=== PATIENT | male | born 1950 | race Caucasian/White ===

== ENCOUNTER 2019-05-11 12:38 | Emergency (ER) | payer OTHER ==
[~2019-05-11] VITALS: Ht 177.8 cm; Wt 83.5 kg
[2019-05-11 13:56] LABS: Basophils # (auto) 0.1 uL; Eosinophils # (auto) 0.2 uL; Eosinophils % (auto) 2.5 % (0.0-7.0); Hematocrit 45.9 % (41.0-53.0); Hemoglobin 15.2 g/dL (13.5-17.5); Lymphocytes # (auto) 1.9 uL; Lymphocytes % (auto) 20.3 % (10.0-50.0); Mean Corpuscular Hemoglobin 30.7 pg (28.0-32.0); Mean Corpuscular Hgb Conc. 33.2 g/dL (32.0-36.0); Mean Corpuscular Volume 92.4 fL (80.0-100.0); Monocytes # (auto) 1.1 uL; Monocytes % (auto) 11.9 % (0.0-12.0); Neutrophils # (auto) 6.1 uL; Neutrophils % (auto) 64.3 % (37.0-80.0); Nucleated Red Blood Cells % 0.1 %; Platelet Count (auto) 307 10^3/uL (140-450); Red Blood Cells 4.97 10^6/uL (4.5-5.90); Red Cell Distribution Width 13.7 % (11.8-14.3); White Blood Cell 9.5 10^3/uL (4.4-10.8)
[2019-05-11] MEDS ORDERED: AZITHROMYCIN 500MG/ 250ML 250 ML IV ONE (14:00)
[2019-05-11] MEDS ORDERED: cefTRIAXone 1GM/50ML D5W 50 ML IV ONE (14:00)
[2019-05-11 14:11] LABS: Albumin 3.7 g/dL (3.4-5.0); BUN/Creatinine Ratio 15.8; Calcium 9.2 mg/dL (8.5-10.1); Potassium 4.5 mmol/L (3.5-5.1)
[2019-05-11 14:14] LABS: Bilirubin, Total 0.4 mg/dL (0.2-1.0); Total Protein 7.8 g/dL (6.4-8.2)
[2019-05-11] MEDS ORDERED: SODIUM CHLORIDE 0.9% 1,000 ML IV ONE (15:51)
[2019-05-11 16:25] LABS: Urine Bacteria NONE SEEN /hpf (None Seen); Urine Blood Negative /uL (Negative); Urine Specific Gravity 1.013 (1.001-1.035); Urine WBC <1 /hpf (0 - 3)
[2019-05-11] MEDS ORDERED: Nepro With Carb Steady 1 Liter Bottle GT SCH (18:15)
[2019-05-11] MEDS ORDERED: RIZA10TA12 PO (18:31)
[2019-05-11] MEDS ORDERED: QUET25TA37 GT (18:31)
[2019-05-11] MEDS ORDERED: TOPI100T29 GT (18:31)
[2019-05-11] MEDS ORDERED: PROP60CA34 GT (18:31)
[2019-05-11] MEDS ORDERED: SENN-62 GT (18:31)
[2019-05-11] MEDS ORDERED: ATOR20TA GT (18:31)
[2019-05-11] MEDS ORDERED: CHOL20007 GT (18:31)
[2019-05-11] MEDS ORDERED: PROM25TA5 GT (18:31)
[2019-05-11] MEDS ORDERED: ASPI-404 PO (18:31)
[2019-05-11] MEDS ORDERED: BUPR75TA9 GT (18:31)
[2019-05-11] MEDS ORDERED: POM GT (18:31)
[2019-05-11] MEDS ORDERED: OME20GT GT (18:31)
[2019-05-11] MEDS ORDERED: LEVO750T2 PO (19:07)
[2019-05-11] MEDS ORDERED: ALBU0.5N2 IN (19:08)
[2019-05-11] MEDS ORDERED: METR500T PO (19:08)
[2019-05-11] MEDS ORDERED: GUAI600T23 PO (19:08)
[2019-05-11 19:23] VITALS: BP 137/83
--- NOTE | 2019-05-12 16:56 | NUR ---
Discharge planning per consult, patient has orders for the [facility] to arrange for out patient ST eval and nebulizer. Placed a follow up call, spoke with Eveyln and was advised that the nebulizer had been ordered to be delivered to his home, and that HH was arranged as well as PCP follow appt. Addendum: 05/12/19 at 1658 by NOHEMY HOBBS Amended: Links added.
--- NOTE | 2019-05-13 09:24 | NUR ---
received a call from Karolyn Zambrano from [facility], she left message stating this pt has not received his nebulizer. This pt was an ER pt and not admitted. I do see that MOOSE Fozia contacted [employer] [facility] to order nebulizer for pt. I called [phone] [employer] and had to leave message with CM stating to f/u with this issue and to make sure pt gets his nebulizer machine
== END 2019-05-11 19:28 | disposition home or self-care (01) ==
LOC: ER 12:38
DX: J18.9 Pneumonia, unspecified organism (principal); R53.1 Weakness; K21.9 Gastro-esophageal reflux disease without esophagitis; E78.5 Hyperlipidemia, unspecified; I10 Essential (primary) hypertension
CPT/HCPCS: 36415; 71046; 80053; 81001; 83735; 84443; 85025; 85379; 87040; 93005; 96365; 96366; 96367; 99284; J0456; J0696; J7030

== ENCOUNTER → 2020-03-12 | Emergency (ER) | payer OTHER ==
[~2020-03-12] VITALS: Ht 177.8 cm; Wt 81.6 kg
[~2020-03-12] MED LIST: ALBU0.5N2 IN; ASPI-404 PO; ATOR20TA GT; BUPR75TA9 GT; CHOL20007 GT; GASTROGRAFIN 30 ML SOL ONE; GUAI600T23 PO; LEVO750T2 PO; METR500T PO; OME20GT GT; POM GT; PROM25TA5 GT; PROP60CA34 GT; QUET25TA37 GT; RIZA10TA12 PO; SENN-62 GT; TOPI100T29 GT
[2020-03-12 18:15] VITALS: BP 130/85
== END | disposition home or self-care (01) ==
LOC: ER 11:04
DX: K94.23 Gastrostomy malfunction (principal); K21.9 Gastro-esophageal reflux disease without esophagitis; E78.5 Hyperlipidemia, unspecified; I10 Essential (primary) hypertension; I25.2 Old myocardial infarction; Z86.73 Personal history of transient ischemic attack (TIA), and cerebral infarction without residual deficits; Z79.899 Other long term (current) drug therapy; Z88.0 Allergy status to penicillin; Z88.2 Allergy status to sulfonamides
CPT/HCPCS: 43762; 74018; 99284; Q9963

== ENCOUNTER 2020-04-08 23:55 | Inpatient (IN) | payer OTHER ==
[~2020-04-08] VITALS: Ht 177.8 cm; Wt 91.0 kg
[~2020-04-08 23:55] MED LIST changes: -ASPI-404 PO; +ASPI-543 PO; -GASTROGRAFIN 30 ML SOL ONE; -LEVO750T2 PO; +LEVO750T8 PO
[2020-04-09] MEDS ORDERED: KETOROLAC TROMETH 30 MG/ML 1ML VIAL IV ONE (00:30)
[2020-04-09] MEDS ORDERED: PANTOPRAZOLE 40 MG/10 ML VIAL INJ IV ONE (00:30)
[2020-04-09 01:01] LABS: Hematocrit 44.5 % (41.0-53.0); Hemoglobin 14.9 g/dL (13.5-17.5); Mean Corpuscular Hemoglobin 31.1 pg (28.0-32.0); Mean Corpuscular Hgb Conc. 33.6 g/dL (32.0-36.0); Mean Corpuscular Volume 92.6 fL (80.0-100.0); Platelet Count (auto) 141 10^3/uL (140-450); Red Blood Cells 4.81 10^6/uL (4.5-5.90); Red Cell Distribution Width 13.7 % (11.8-14.3); White Blood Cell 5.7 10^3/uL (4.4-10.8)
[2020-04-09 01:05] LABS: Basophils % (manual) 0 (0.0-2.0); Blast Cells 0; Eosinophils % (manual) 0 (0-7); Metamyelocytes % 0; Myelocytes % 0; Promyelocytes % 0; Reactive Lymphocytes 0
[2020-04-09 01:17] LABS: Partial Thromboplastin Time 25.9 sec (23.0-31.2)
[2020-04-09 01:23] LABS: Albumin 3.4 g/dL (3.4-5.0); Chloride 112 mmol/L (98-107); Potassium 3.3 mmol/L (3.5-5.1); Sodium 141 mmol/L (136-145)
[2020-04-09 01:34] LABS: Alanine Aminotransferase 135 U/L (16-61); Alkaline Phosphatase 189 U/L (45-117); Anion Gap 7 (5-15); Aspartate Aminotransferase 78 U/L (15-37); BUN/Creatinine Ratio 19.3; Blood Urea Nitrogen 23 mg/dL (7-18); CRP High Sensitivity 5.75 mg/dL (< 0.3); Calcium 8.7 mg/dL (8.5-10.1); Carbon Dioxide 22 mmol/L (21-32); GFR African American 78 mL/min; GFR Non-African American 65 mL/min; Glucose 102 mg/dL (74-106); Magnesium 2.5 mg/dL (1.6-2.6); Total Protein 7.6 g/dL (6.4-8.2)
[2020-04-09] MEDS ORDERED: LORazepam 2MG/ML-1ML VIAL IV ONE (02:00)
[2020-04-09 02:46] LABS: Band Neutrophils % (manual) 4; Lymphocytes % (manual) 10 (10.0-50.0); Monocytes % (manual) 11 (0-12)
[2020-04-09] MEDS ORDERED: IOHEXOL 350 MG/ML 100ML IJ ONE (02:52)
[2020-04-09] MEDS ORDERED: ONDANSETRON HCL 4 MG/2 ML VIAL IV PRN (10:45)
[2020-04-09] MEDS: POTASSIUM CHL 20MEQ/100ML 100 ML IV SCH ×2 (10:45→12:00)
[2020-04-09] MEDS ORDERED: MORPHINE SULF INJ 2 MG/ML SYRINGE 1ML IV PRN (10:45)
[2020-04-09] MEDS ORDERED: NITROGLYCERIN 0.4 MG SL TAB SL PRN (10:45)
[2020-04-09] MEDS ORDERED: MORPHINE SULF INJ 2 MG/ML SYRINGE 1ML IV ONE (10:45)
[2020-04-09] MEDS ORDERED: ENOXAPARIN SOD 80 MG/0.8ML SYRINGE SC ONE (10:45)
[2020-04-09] MEDS ORDERED: GABAPENTIN 100 MG CAP PO ONE (11:15)
[2020-04-09] MEDS ORDERED: GABAPENTIN 400 MG CAP PO ONE (11:15)
[2020-04-09] MEDS ORDERED: POTASSIUM CHLORIDE 40 MEQ, LIDOCAINE 1% (LOCAL ANESTH.) 4 ML in SODIUM CHL 0.9% 100 ML IV ONE (12:00)
--- NOTE | 2020-04-09 14:20 | NUR ---
RECEIVED REPORT FROM MELISSA RICARDO.
--- NOTE | 2020-04-09 14:48 | NUR ---
Telemetry admit from [facility] admitted to Telemetry unit after SBAR received. Patient oriented to YVETTE QUINTANILLA RN primary RN, unit, room, bed, and unit policies regarding patient care and visiting hours. Patient now on continuous telemetry monitoring, tele box # 19 and telemetry reading on arrival to unit is SINUS RHYTHM. Patient placed on bedside oxygen, weighed by bedscale and encouraged to call if they need something. All questions and concerns addressed, patient verbalized understanding.
[2020-04-09 15:30] VITALS: BP 139/92
[2020-04-09] MEDS ORDERED: WARFARIN SODIUM 2.5 MG TAB PO ONE (17:00)
--- NOTE | 2020-04-09 17:00 | NUR ---
PATIENT STATES HE DOES NOT TAKE COUMADIN. COUMADIN REFUSED.
--- NOTE | 2020-04-09 19:22 | NUR ---
Dr. Bell Orders Dr. Kinney at bedside. Ordered Decadron 6mg IV daily and a one time dose. Chest xray, D-dimer lab, and Ferritin lab in the morning. Repeated orders to verified.
[2020-04-09] MEDS ORDERED: DexAMETHasone SOD PHOS 10MG/1ML VIAL INJ IV ONE (19:30)
--- NOTE | 2020-04-09 19:45 | NUR ---
Opening Shift Note Assumed care of patient, awake and alert. No S/S of distress/SOB. Patient c/o pain 04/02. No pain medication on file, will page doctor. Instructed on POC and to call for assist PRN, will continue to monitor for changes Q1hr and PRN .
[2020-04-09 20:00] VITALS: BP 130/95
--- NOTE | 2020-04-09 20:00 | NUR ---
PEG Tube Cleaned around PEG tube due to minimal yellow drainage. Patient belly button surrounding skin is pinkish/reddish.
--- NOTE | 2020-04-09 20:33 | NUR ---
Paged Doctor Paged Dr. Christie after hours, left a message with powder press operator, waiting to call back.
--- NOTE | 2020-04-09 21:20 | NUR ---
Follow UP Paged with Doctor Paged Dr. Christie after hours, left a message with stave log cut off saw operator, waiting to call back.
--- NOTE | 2020-04-09 22:00 | NUR ---
Follow Up Paged Doctor Paged Dr. Christie after hours, left a message with cutting and creasing press operator, waiting to call back.
--- NOTE | 2020-04-09 22:03 | NUR ---
Call Back Dr. Zazueta called back under [place] [facility]. Update on patient's need for pain medication. Dr. Zazueta ordered Morphine 2mg IV Q3hr for severe pain (7-10). Repeated orders to verified.
[2020-04-09 22:07] VITALS: BP 130/95
[2020-04-09] MEDS: QUEtiapine FUMARATE 25 MG TAB GT SCH (22:19)
[2020-04-09] MEDS: buPROPion HCL 75 MG TAB GT SCH (22:20)
[2020-04-09] MEDS: ENOXAPARIN SOD 80 MG/0.8ML SYRINGE SC SCH (22:20)
[2020-04-09] MEDS: MORPHINE SULF INJ 2 MG/ML SYRINGE 1ML IV PRN (22:20)
--- NOTE | 2020-04-09 23:10 | NUR ---
PEG Tube Cleaned around PEG tube due to minimal yellow drainage. Patient belly button surrounding skin is pinkish/reddish.
[2020-04-10] MEDS ORDERED: GABAPENTIN 100 MG CAP PO ONE (00:15)
[2020-04-10] MEDS: MORPHINE SULF INJ 2 MG/ML SYRINGE 1ML IV PRN ×3 (01:24→07:45)
[2020-04-10] MEDS ORDERED: MORPHINE SULFATE 10 MG/5 ML ORAL SOLN GT PRN (02:45)
[2020-04-10 05:00] VITALS: BP 128/97
[2020-04-10] MEDS ORDERED: GABAPENTIN 100 MG CAP PO SCH (06:00)
[2020-04-10 07:24] LABS: Basophils # (auto) 0 10 ^3/uL (0-0.2); Basophils % (auto) 0.2 % (0.0-2.0); Eosinophils # (auto) 0 10 ^3/uL (0-0.8); Hematocrit 42.3 % (41.0-53.0); Hemoglobin 14.1 g/dL (13.5-17.5); Lymphocytes # (auto) 0.6 10 ^3/uL (0.4-5.4); Lymphocytes % (auto) 14.1 % (10.0-50.0); Mean Corpuscular Hemoglobin 30.7 pg (28.0-32.0); Mean Corpuscular Hgb Conc. 33.2 g/dL (32.0-36.0); Mean Corpuscular Volume 92.5 fL (80.0-100.0); Monocytes # (auto) 0.2 10 ^3/uL (0-1.3); Monocytes % (auto) 5.7 % (0.0-12.0); Neutrophils # (auto) 3.3 10 ^3/uL (1.6-8.6); Nucleated Red Blood Cells % 0.1 %; Platelet Count (auto) 144 10^3/uL (140-450); Red Blood Cells 4.57 10^6/uL (4.5-5.90); Red Cell Distribution Width 13.8 % (11.8-14.3); White Blood Cell 4.2 10^3/uL (4.4-10.8)
[2020-04-10 07:37] LABS: Albumin 3.2 g/dL (3.4-5.0); Calcium 8.7 mg/dL (8.5-10.1)
[2020-04-10 07:40] LABS: BUN/Creatinine Ratio 28.3; Bilirubin, Total 0.8 mg/dL (0.2-1.0); Total Protein 7.3 g/dL (6.4-8.2)
[2020-04-10 07:42] LABS: INR 1.03 (0.9-1.15)
[2020-04-10 09:21] VITALS: BP 129/86
[2020-04-10] MEDS ORDERED: ATORVASTATIN 20 MG TAB GT SCH (10:00)
[2020-04-10] MEDS ORDERED: GABAPENTIN 100 MG CAP PEG ONE (10:15)
[2020-04-10] MEDS: OMEPRAZOLE 20MG/10ML ORAL SUSP GT SCH (11:44)
[2020-04-10] MEDS: DexAMETHasone SOD PHOS 10MG/1ML VIAL INJ IV SCH (11:45)
[2020-04-10] MEDS: TOPIRAMATE 100 MG TAB GT SCH (11:45)
[2020-04-10] MEDS: buPROPion HCL 75 MG TAB GT SCH ×2 (11:45→23:22)
[2020-04-10] MEDS: ASPirin-EC 81 mg tab PO SCH (11:46)
[2020-04-10] MEDS: ENOXAPARIN SOD 80 MG/0.8ML SYRINGE SC SCH ×2 (11:46→23:21)
[2020-04-10] MEDS: MORPHINE SULFATE 10 MG/5 ML ORAL SOLN GT PRN ×2 (11:46→18:44)
--- NOTE | 2020-04-10 12:30 | NUR ---
WOUND CARE NOTE: Wound care in to see patient per wound care request regarding "Peg tube incision". Patient is 69 years old male admitted for PE. Patient is resting in bed in Rm. 247A. Patient is awake, alert and oriented. He's self turning and repositioning. His Godwin score is 21. Patient has G Tube and surrounding skin noted with erythema, skin irritation. Cleansed skin with NS, patted dry with gauze, applied sure prep skin protectant, applied, dry sterile 4x4 gauze. No other wound noted, no pressure injury noted. Patient tolerated well. No further wound care monitoring needed at this time. RECOMMENDATION: Daily/PRN cleaning and application of skin protectant to GT surrounding skin dressing per MD order, reconsult for active wound, pressure injury, Low Godwin score of 12 and below. Addendum: 04/10/20 at 1547 by Mona Shah RN Amended: Links added.
[2020-04-10 13:19] VITALS: BP 130/88
--- NOTE | 2020-04-10 13:59 | NUR ---
Consult Consider Osmolite 1.2 at 65 ml/hr Est energy needs 3964-3677 kcal (20-25 kcal/kg BW 78.1kg) Est protein needs 63-78g (0.8-1g/kg BW 78.1kg) Will reassess prn. Addendum: 04/10/20 at [address] Amended: Links added.
[2020-04-10] MEDS: GABAPENTIN 100 MG CAP PEG SCH ×2 (16:54→23:23)
[2020-04-10 17:00] VITALS: BP 139/82
[2020-04-10] MEDS ORDERED: WARFARIN SODIUM 2.5 MG TAB GT ONE (17:00)
--- NOTE | 2020-04-10 19:30 | NUR ---
Opening Shift Note Assumed care of patient, awake and alert. No S/S of distress/SOB or pain. Instructed on POC and to call for assist PRN, will continue to monitor for changes Q1hr and PRN.
--- NOTE | 2020-04-10 20:07 | NUR ---
Repot/SBAR given to Nurse Report/SBAR given to Nurse Staci
--- NOTE | 2020-04-10 21:00 | NUR ---
Patient Transfer Patient transfer via wheelchair to room 216A. Patient tolerated well.
--- NOTE | 2020-04-10 21:00 | NUR ---
Patient received from [facility] Patient received from [facility] via wheelchair. Patient settled in bed. Patient oriented to room, bed, and call light. Patient verbalized understanding. Patient A&Ox4. No s/s of distress or pain. Safety measures maintained by keeping the bed locked in lowest position, 2 side rails up, personal items and call light within reach. Will continue to monitor.
--- NOTE | 2020-04-10 21:01 | NUR ---
Narcotics Patient's pharmacy narcotic's (morphine & gabapentin) were given to MELISSA Small.
[2020-04-10] MEDS: ATORVASTATIN 20 MG TAB GT SCH (21:49)
[2020-04-10 22:00] VITALS: BP 129/88
[2020-04-10] MEDS: QUEtiapine FUMARATE 25 MG TAB GT SCH (23:22)
[2020-04-11] MEDS: MORPHINE SULFATE 10 MG/5 ML ORAL SOLN GT PRN ×3 (03:54→19:58)
[2020-04-11 05:00] VITALS: BP 122/75
[2020-04-11] MEDS: GABAPENTIN 100 MG CAP PEG SCH ×3 (06:13→22:43)
--- NOTE | 2020-04-11 07:20 | NUR ---
Opening Shift Note Assumed care of patient, awake and alert. No S/S of distress/SOB, reports chronic back pain. Instructed on POC and to call for assist PRN, will continue to monitor for changes Q1hr and PRN.
[2020-04-11 08:33] LABS: Basophils # (auto) 0 10 ^3/uL (0-0.2); Basophils % (auto) 0.4 % (0.0-2.0); Eosinophils # (auto) 0 10 ^3/uL (0-0.8); Eosinophils % (auto) 0.1 % (0.0-7.0); Hematocrit 44.8 % (41.0-53.0); Lymphocytes % (auto) 15.3 % (10.0-50.0); Mean Corpuscular Hgb Conc. 33.6 g/dL (32.0-36.0); Mean Corpuscular Volume 92.4 fL (80.0-100.0); Monocytes # (auto) 0.8 10 ^3/uL (0-1.3); Monocytes % (auto) 12.1 % (0.0-12.0); Neutrophils # (auto) 4.9 10 ^3/uL (1.6-8.6); Neutrophils % (auto) 72.1 % (37.0-80.0); Nucleated Red Blood Cells % 0.1 %; Platelet Count (auto) 171 10^3/uL (140-450); Red Blood Cells 4.85 10^6/uL (4.5-5.90); Red Cell Distribution Width 13.5 % (11.8-14.3); White Blood Cell 6.8 10^3/uL (4.4-10.8)
[2020-04-11 08:46] LABS: Albumin 3.5 g/dL (3.4-5.0); Calcium 8.8 mg/dL (8.5-10.1); Potassium 3.4 mmol/L (3.5-5.1)
[2020-04-11 08:50] LABS: BUN/Creatinine Ratio 29.2; Bilirubin, Total 0.7 mg/dL (0.2-1.0); INR 1.14 (0.9-1.15); Total Protein 7.7 g/dL (6.4-8.2)
[2020-04-11 09:00] VITALS: BP 123/81
[2020-04-11] MEDS: ENOXAPARIN SOD 80 MG/0.8ML SYRINGE SC SCH ×2 (10:00→22:43)
[2020-04-11] MEDS: DexAMETHasone SOD PHOS 10MG/1ML VIAL INJ IV SCH (10:00)
[2020-04-11] MEDS: ASPirin-EC 81 mg tab PO SCH (10:00)
--- NOTE | 2020-04-11 11:03 | NUR ---
I faxed home health order to [facility].
[2020-04-11] MEDS: OMEPRAZOLE 20MG/10ML ORAL SUSP GT SCH (11:39)
[2020-04-11] MEDS: TOPIRAMATE 100 MG TAB GT SCH (11:39)
[2020-04-11] MEDS: buPROPion HCL 75 MG TAB GT SCH ×2 (11:39→22:43)
--- NOTE | 2020-04-11 12:25 | NUR ---
I spoke with [facility] Reading Coach Laurel-she said patient will be followed by [facility] (phone number [phone]), they will see patient within 24-48 hours of discharge.
[2020-04-11 13:00] VITALS: BP 116/74
[2020-04-11] MEDS ORDERED: IOHEXOL 300 MG/ML 100ML BOTTLE IJ ONE (13:11)
[2020-04-11 17:00] VITALS: BP 118/82
[2020-04-11] MEDS ORDERED: WARFARIN SODIUM 2.5 MG TAB GT ONE (17:00)
--- NOTE | 2020-04-11 19:30 | NUR ---
Opening Shift Note Assumed care of patient, awake and alert. A&Ox4. Patient laying in bed. No S/S of distress/SOB or pain. Patient asking for a dressing change for his J tube. Dressing changed with no complications. Safety measures maintained by keeping the bed locked in lowest position, 2 side rails up, personal items and call light within reach. Instructed on POC and to call for assist PRN, will continue to monitor for changes Q1hr and PRN.
[2020-04-11] MEDS: ATORVASTATIN 20 MG TAB GT SCH (19:56)
[2020-04-11 22:21] VITALS: BP 127/65
[2020-04-11] MEDS: QUEtiapine FUMARATE 25 MG TAB GT SCH (22:43)
[2020-04-12 05:28] VITALS: BP 144/75
[2020-04-12] MEDS: GABAPENTIN 100 MG CAP PEG SCH ×2 (05:45→13:30)
[2020-04-12 06:53] LABS: Basophils # (auto) 0 10 ^3/uL (0-0.2); Basophils % (auto) 0.5 % (0.0-2.0); Eosinophils # (auto) 0.1 10 ^3/uL (0-0.8); Eosinophils % (auto) 2.1 % (0.0-7.0); Hematocrit 40.1 % (41.0-53.0); Hemoglobin 13.2 g/dL (13.5-17.5); Lymphocytes # (auto) 1.4 10 ^3/uL (0.4-5.4); Lymphocytes % (auto) 23.8 % (10.0-50.0); Mean Corpuscular Hemoglobin 30.8 pg (28.0-32.0); Mean Corpuscular Hgb Conc. 32.8 g/dL (32.0-36.0); Mean Corpuscular Volume 93.8 fL (80.0-100.0); Monocytes # (auto) 0.8 10 ^3/uL (0-1.3); Monocytes % (auto) 13.4 % (0.0-12.0); Neutrophils # (auto) 3.5 10 ^3/uL (1.6-8.6); Neutrophils % (auto) 60.2 % (37.0-80.0); Nucleated Red Blood Cells % 0.1 %; Platelet Count (auto) 155 10^3/uL (140-450); Red Blood Cells 4.27 10^6/uL (4.5-5.90); Red Cell Distribution Width 13.9 % (11.8-14.3); White Blood Cell 5.8 10^3/uL (4.4-10.8)
[2020-04-12] MEDS: MORPHINE SULFATE 10 MG/5 ML ORAL SOLN GT PRN ×2 (07:03→15:15)
[2020-04-12 07:17] LABS: INR 1.95 (0.9-1.15)
[2020-04-12 07:20] LABS: Albumin 3.1 g/dL (3.4-5.0); Calcium 8.3 mg/dL (8.5-10.1)
[2020-04-12 07:25] LABS: BUN/Creatinine Ratio 22.2; Bilirubin, Total 0.8 mg/dL (0.2-1.0); Total Protein 6.4 g/dL (6.4-8.2)
[2020-04-12] MEDS ORDERED: POTASSIUM CHL 20 Meq TABLET PO ONE (07:45)
[2020-04-12 08:00] VITALS: BP 134/77
--- NOTE | 2020-04-12 08:00 | NUR ---
Called Dr. Ryder to clarify the order for Potassium 60 Meq PO, patient has J-tube replaced yesterday, Pharmacy said there's Potassium Effervescent 25 Meq each sachet [place]ton. Dr. Ryder ordered to change the order to Potassium Effervescent 50 Meq, call Dr. Weathers if patient can go home even if the J-tube site is leaking. Dr. Ryder ordered to give the Comadin dose today before discharge. Addendum: 04/12/20 at 0913 by Betina Quintero RN G-tube
[2020-04-12] MEDS ORDERED: POTASSIUM EFFERVESENT TAB 25 MEQ GT ONE (08:15)
--- NOTE | 2020-04-12 08:20 | NUR ---
Wet gauze dressing noted on the J-tube site. Dressing change done on the J-tube site. Tube intact and patent. Addendum: 04/12/20 at 0912 by Betina Quintero RN G-tube
[2020-04-12] MEDS: DexAMETHasone SOD PHOS 10MG/1ML VIAL INJ IV SCH (08:33)
[2020-04-12] MEDS: ENOXAPARIN SOD 80 MG/0.8ML SYRINGE SC SCH (08:33)
[2020-04-12] MEDS: ASPirin-EC 81 mg tab PO SCH (08:33)
--- NOTE | 2020-04-12 09:10 | NUR ---
Called Dr. Weathers regarding periods of leaking on the site of the G-tube; Dr. Ryder asked if patient can go home today. Dr. Weathers said he has no more tubes to place, patient can go home. G-tube is patent for medication administration.
--- NOTE | 2020-04-12 09:48 | NUR ---
Dr. Ryder came over. made aware Dr. Weathers has no more tubes to insert, patient can go home. Able to administer medications via G-tube. Periods of leaking on the G-tube site. Dr. Ryder ordered to discontinue the Coumadin, [facility] bedside before discharge today.
--- NOTE | 2020-04-12 10:00 | NUR ---
Patient stated his will pick him up around 4:00 pm to 5:00 pm today.
[2020-04-12] MEDS: OMEPRAZOLE 20MG/10ML ORAL SUSP GT SCH (10:39)
[2020-04-12] MEDS: TOPIRAMATE 100 MG TAB GT SCH (10:40)
[2020-04-12] MEDS: buPROPion HCL 75 MG TAB GT SCH (10:40)
--- NOTE | 2020-04-12 12:18 | NUR ---
Assisted the patient ambulating to the bathroom. Instructions given to patient to pull the red string if he needs help.
--- NOTE | 2020-04-12 14:10 | NUR ---
Portable O2 tank w/ nasal cannula delivered at bedside.
[2020-04-12 14:24] VITALS: BP 134/77
--- NOTE | 2020-04-12 16:30 | NUR ---
Photo taken of the stoma of the J-tube/PEG site. Wound care form placed on the wound care tray, camera returned to [facility].
--- NOTE | 2020-04-12 16:48 | NUR ---
Dr. Ryder called that patient's portable O2 was delivered at home. Dr. Ryder made aware the patient's portable 02 was delivered at [facility], now at patient's bedside.
[2020-04-12] MEDS ORDERED: WARFARIN SODIUM 1 MG TAB GT ONE (17:00)
--- NOTE | 2020-04-12 17:24 | NUR ---
Discharge instructions given as ordered. Encourage to follow up with PMD as instructed. All questions and concerns addressed. Patient verbalized understanding. Medication reconciliation form completed and copy given to patient. IV removed with catheter intact, pressure dressing applied. Telemetry unit returned to ICU. Patient taken to vehicle via wheelchair with all personal belongings inclding the portable O2 tank w/ nasal cannula, patient accompanied by staff, family member waiting at the Main Lobby. No distress noted at time of departure.
== END 2020-04-12 17:25 | disposition home or self-care (01) | DRG 189 ==
LOC: EDBD 23:55 → ER 04-09 00:02 → TELE-EAST 04-09 00:03 → TELE-CENTR 04-10 21:00
PROVIDERS: ADMIT Hospitalist; ATTEND Hospitalist
PROC: 0D2DXUZ Change Feeding Device in Lower Intestinal Tract, External Approach (ICD-10-PCS; principal; 2020-04-11)
DX: J96.01 Acute respiratory failure with hypoxia (principal); D68.9 Coagulation defect, unspecified; J98.11 Atelectasis; I71.9 Aortic aneurysm of unspecified site, without rupture; E78.5 Hyperlipidemia, unspecified; F41.9 Anxiety disorder, unspecified; I10 Essential (primary) hypertension; I25.10 Atherosclerotic heart disease of native coronary artery without angina pectoris; I27.20 Pulmonary hypertension, unspecified; Z20.828 Contact with and (suspected) exposure to other viral communicable diseases; F32.9 Major depressive disorder, single episode, unspecified; G43.909 Migraine, unspecified, not intractable, without status migrainosus; K21.9 Gastro-esophageal reflux disease without esophagitis; Z80.9 Family history of malignant neoplasm, unspecified; Z86.73 Personal history of transient ischemic attack (TIA), and cerebral infarction without residual deficits; Z86.79 Personal history of other diseases of the circulatory system; Z95.2 Presence of prosthetic heart valve; Z93.1 Gastrostomy status; Z88.0 Allergy status to penicillin; Z88.2 Allergy status to sulfonamides
CPT/HCPCS: 36415; 36600; 71045; 71275; 74018; 76000; 78582; 80053; 82728; 82805; 83615; 83735; 83880; 84484; 85007; 85025; 85027; 85379; 85610; 85730; 86141; 87040; 87081; 87426; 93005; 93306; 93970; 96361; 96372; 96374; 96375; C9113; G0378; J1100; J1885; J2001; J2405; J3480

== ENCOUNTER 2020-06-22 14:57 | Inpatient (IN) | payer OTHER ==
[~2020-06-22] VITALS: Ht 177.8 cm; Wt 74.3 kg
[2020-06-22] MEDS ORDERED: methylPREDNISolone SOD SUCC 125 MG/2 ML VL IV ONE (15:15)
[2020-06-22 15:55] LABS: Basophils # (auto) 0 10 ^3/uL (0-0.2); Basophils % (auto) 0.2 % (0.0-2.0); Eosinophils # (auto) 0 10 ^3/uL (0-0.8); Eosinophils % (auto) 0.1 % (0.0-7.0); Hemoglobin 11.8 g/dL (13.5-17.5); Lymphocytes # (auto) 0.6 10 ^3/uL (0.4-5.4); Lymphocytes % (auto) 14.6 % (10.0-50.0); Mean Corpuscular Hemoglobin 30.5 pg (28.0-32.0); Mean Corpuscular Hgb Conc. 32.8 g/dL (32.0-36.0); Monocytes # (auto) 0.6 10 ^3/uL (0-1.3); Monocytes % (auto) 15.9 % (0.0-12.0); Neutrophils # (auto) 2.7 10 ^3/uL (1.6-8.6); Neutrophils % (auto) 69.2 % (37.0-80.0); Platelet Count (auto) 127 10^3/uL (140-450); Red Blood Cells 3.87 10^6/uL (4.5-5.90); White Blood Cell 3.9 10^3/uL (4.4-10.8)
[2020-06-22 16:09] LABS: Albumin 2.7 g/dL (3.4-5.0); Anion Gap 9 (5-15); Blood Urea Nitrogen 28 mg/dL (7-18); Calcium 7.8 mg/dL (8.5-10.1); Carbon Dioxide 21 mmol/L (21-32); Chloride 110 mmol/L (98-107); Glucose 105 mg/dL (74-106); Potassium 3.6 mmol/L (3.5-5.1); Sodium 140 mmol/L (136-145)
[2020-06-22 16:17] LABS: Alanine Aminotransferase 24 U/L (16-61); Alkaline Phosphatase 80 U/L (45-117); Aspartate Aminotransferase 48 U/L (15-37); BUN/Creatinine Ratio 27.5; Bilirubin, Total 0.4 mg/dL (0.2-1.0); CRP High Sensitivity 4.59 mg/dL (< 0.3); GFR African American 94 mL/min; GFR Non-African American 77 mL/min; Total Protein 6.6 g/dL (6.4-8.2)
[2020-06-22] MEDS ORDERED: ASCORBIC ACID 500 MG TAB PO ONE (17:15)
[2020-06-22] MEDS ORDERED: ZINC SULFATE 220mg CAP or TAB PO ONE (17:15)
[2020-06-22] MEDS ORDERED: AZITHROMYCIN 500MG/ 250ML 250 ML IV ONE (17:15)
[2020-06-23] MEDS: HYDROcodone-ACET 10/325MG TAB PO PRN ×3 (02:34→22:35)
[2020-06-23] MEDS ORDERED: OME20GT GT (03:11)
[2020-06-23] MEDS ORDERED: RIZA5TAB35 PEG (03:11)
[2020-06-23] MEDS ORDERED: GABA100C9 JT (03:15)
[2020-06-23] MEDS ORDERED: INFLUENZA QUAD 2020-2021 0.5 ML SYRG IM ONE (03:15)
[2020-06-23] MEDS ORDERED: LISI-648 PEG (03:15)
[2020-06-23] MEDS ORDERED: MORP20SO17 JT (03:15)
[2020-06-23] MEDS ORDERED: MORP15TA JT (03:15)
[2020-06-23 05:00] VITALS: BP 114/78
[2020-06-23] MEDS ORDERED: MORPHINE SULF INJ 2 MG/ML SYRINGE 1ML IV PRN (06:30)
[2020-06-23 06:43] LABS: Hematocrit 38.9 % (41.0-53.0); Hemoglobin 12.8 g/dL (13.5-17.5); Mean Corpuscular Hemoglobin 30.3 pg (28.0-32.0); Mean Corpuscular Hgb Conc. 32.8 g/dL (32.0-36.0); Mean Corpuscular Volume 92.3 fL (80.0-100.0); Platelet Count (auto) 149 10^3/uL (140-450); Red Blood Cells 4.22 10^6/uL (4.5-5.90); Red Cell Distribution Width 13.8 % (11.8-14.3)
[2020-06-23 06:51] LABS: Basophils % (manual) 0 (0.0-2.0); Blast Cells 0; Eosinophils % (manual) 0 (0-7); Promyelocytes % 0; Reactive Lymphocytes 0
[2020-06-23 07:08] LABS: Band Neutrophils % (manual) 2; Lymphocytes % (manual) 6 (10.0-50.0); Metamyelocytes % 2; Monocytes % (manual) 4 (0-12); Myelocytes % 1
[2020-06-23 07:11] LABS: BUN/Creatinine Ratio 27.5; Calcium 8.3 mg/dL (8.5-10.1); Potassium 4.1 mmol/L (3.5-5.1)
[2020-06-23 09:00] VITALS: BP 116/79
[2020-06-23] MEDS: DexAMETHasone SOD PHOS 10MG/1ML VIAL INJ IV SCH (09:46)
[2020-06-23] MEDS: AZITHROMYCIN 500MG/ 250ML 250 ML IV SCH (09:46)
[2020-06-23] MEDS: MORPHINE SULFATE 4 MG/ML SYR/VIAL IV PRN ×3 (10:56→21:01)
[2020-06-23] MEDS: OMEPRAZOLE 20MG/10ML ORAL SUSP GT SCH ×2 (12:37→16:47)
[2020-06-23] MEDS: Nepro With Carb Steady 1 Liter Bottle GT SCH (12:51)
[2020-06-23 13:00] VITALS: BP 109/75
[2020-06-23] MEDS: TOPIRAMATE 100 MG TAB GT SCH (16:46)
[2020-06-23] MEDS: ASPirin-EC 81 mg tab PO SCH (16:46)
[2020-06-23] MEDS: LISINOPRIL 10 MG TAB PEG SCH (16:47)
[2020-06-23] MEDS: GABAPENTIN 100 MG CAP JT SCH ×2 (16:47→21:29)
[2020-06-23 17:00] VITALS: BP 113/73
[2020-06-23] MEDS: ONDANSETRON HCL 4 MG/2 ML VIAL IV PRN (18:13)
[2020-06-23] MEDS: ATORVASTATIN 20 MG TAB GT SCH (21:29)
[2020-06-23] MEDS: buPROPion HCL 75 MG TAB GT SCH (21:29)
[2020-06-23] MEDS: QUEtiapine FUMARATE 25 MG TAB GT SCH (21:29)
[2020-06-23 22:00] VITALS: BP 123/74
[2020-06-24] VITALS (7 sets, daily range): BP systolic 115–137; BP diastolic 72–85
[2020-06-24] MEDS: MORPHINE SULFATE 4 MG/ML SYR/VIAL IV PRN ×4 (01:55→20:10)
[2020-06-24] MEDS: ONDANSETRON HCL 4 MG/2 ML VIAL IV PRN ×3 (03:25→20:10)
[2020-06-24] MEDS: GABAPENTIN 100 MG CAP JT SCH ×3 (05:51→22:09)
[2020-06-24 06:54] LABS: Basophils # (auto) 0 10 ^3/uL (0-0.2); Basophils % (auto) 0.2 % (0.0-2.0); Eosinophils # (auto) 0 10 ^3/uL (0-0.8); Hematocrit 39.1 % (41.0-53.0); Hemoglobin 13.1 g/dL (13.5-17.5); Lymphocytes # (auto) 0.7 10 ^3/uL (0.4-5.4); Lymphocytes % (auto) 10.5 % (10.0-50.0); Mean Corpuscular Hemoglobin 30.3 pg (28.0-32.0); Mean Corpuscular Hgb Conc. 33.5 g/dL (32.0-36.0); Mean Corpuscular Volume 90.5 fL (80.0-100.0); Monocytes # (auto) 0.8 10 ^3/uL (0-1.3); Monocytes % (auto) 11.3 % (0.0-12.0); Neutrophils # (auto) 5.5 10 ^3/uL (1.6-8.6); Platelet Count (auto) 188 10^3/uL (140-450); Red Blood Cells 4.31 10^6/uL (4.5-5.90); Red Cell Distribution Width 13.8 % (11.8-14.3)
[2020-06-24 07:11] LABS: BUN/Creatinine Ratio 38.8; Calcium 8.5 mg/dL (8.5-10.1); Potassium 3.5 mmol/L (3.5-5.1)
[2020-06-24] MEDS: ACETAMINOPHEN 325 MG TAB PO PRN ×2 (08:12→14:04)
[2020-06-24] MEDS: OMEPRAZOLE 20MG/10ML ORAL SUSP GT SCH (08:25)
[2020-06-24] MEDS: buPROPion HCL 75 MG TAB GT SCH ×2 (08:25→22:09)
[2020-06-24] MEDS: TOPIRAMATE 100 MG TAB GT SCH (08:25)
[2020-06-24] MEDS: AZITHROMYCIN 500MG/ 250ML 250 ML IV SCH (08:26)
[2020-06-24] MEDS: DexAMETHasone SOD PHOS 10MG/1ML VIAL INJ IV SCH (08:26)
[2020-06-24] MEDS: ASPirin-EC 81 mg tab PO SCH (08:26)
[2020-06-24] MEDS: LISINOPRIL 10 MG TAB PEG SCH (08:27)
[2020-06-24] MEDS: ALBUTEROL SULF 2.5 MG/0.5ML(0.5%) NEB SOLN NEB SCH ×2 (11:05→14:43)
[2020-06-24] MEDS: IPRATROPIUM BROM 0.5 MG/2.5ML INH SOL NEB SCH ×2 (11:05→14:43)
[2020-06-24] MEDS: CYCLOBENZAPRINE HCL 10 MG TAB PO PRN (15:55)
[2020-06-24] MEDS: Nepro With Carb Steady 1 Liter Bottle GT SCH (17:53)
[2020-06-24] MEDS ORDERED: ALBUTEROL SULFATE 90 MCG MDI IN ONE (20:50)
[2020-06-24] MEDS: ATORVASTATIN 20 MG TAB GT SCH (22:08)
[2020-06-24] MEDS: QUEtiapine FUMARATE 25 MG TAB GT SCH (22:09)
[2020-06-24] MEDS: ALBUTEROL SULF HFA 90MCG INH 200DOSE IN SCH (22:27)
[2020-06-25] MEDS: MORPHINE SULFATE 4 MG/ML SYR/VIAL IV PRN ×2 (01:18→11:45)
[2020-06-25] MEDS: ONDANSETRON HCL 4 MG/2 ML VIAL IV PRN ×3 (01:18→12:55)
[2020-06-25] MEDS: CYCLOBENZAPRINE HCL 10 MG TAB PO PRN (04:45)
[2020-06-25 05:00] VITALS: BP 122/83
[2020-06-25 05:24] LABS: Basophils # (auto) 0 10 ^3/uL (0-0.2); Basophils % (auto) 0.1 % (0.0-2.0); Eosinophils # (auto) 0 10 ^3/uL (0-0.8); Eosinophils % (auto) 0.3 % (0.0-7.0); Hematocrit 39.4 % (41.0-53.0); Hemoglobin 13.3 g/dL (13.5-17.5); Lymphocytes # (auto) 0.6 10 ^3/uL (0.4-5.4); Lymphocytes % (auto) 11.8 % (10.0-50.0); Mean Corpuscular Hemoglobin 30.9 pg (28.0-32.0); Mean Corpuscular Hgb Conc. 33.8 g/dL (32.0-36.0); Mean Corpuscular Volume 91.4 fL (80.0-100.0); Monocytes # (auto) 0.7 10 ^3/uL (0-1.3); Neutrophils # (auto) 3.7 10 ^3/uL (1.6-8.6); Neutrophils % (auto) 73.8 % (37.0-80.0); Platelet Count (auto) 211 10^3/uL (140-450); Red Blood Cells 4.31 10^6/uL (4.5-5.90)
[2020-06-25] MEDS: ACETAMINOPHEN 325 MG TAB PO PRN (05:27)
[2020-06-25] MEDS: ALBUTEROL SULF HFA 90MCG INH 200DOSE IN SCH ×2 (05:39→14:32)
[2020-06-25 05:40] LABS: Calcium 8.8 mg/dL (8.5-10.1); Potassium 3.2 mmol/L (3.5-5.1)
[2020-06-25 05:42] LABS: BUN/Creatinine Ratio 35.7
[2020-06-25] MEDS: GABAPENTIN 100 MG CAP JT SCH ×2 (06:39→14:00)
[2020-06-25] MEDS: AZITHROMYCIN 500MG/ 250ML 250 ML IV SCH (08:29)
[2020-06-25] MEDS: TOPIRAMATE 100 MG TAB GT SCH (08:29)
[2020-06-25] MEDS: buPROPion HCL 75 MG TAB GT SCH (08:29)
[2020-06-25] MEDS: DexAMETHasone SOD PHOS 10MG/1ML VIAL INJ IV SCH (08:29)
[2020-06-25] MEDS: ASPirin-EC 81 mg tab PO SCH (08:30)
[2020-06-25 08:34] VITALS: BP 123/86
[2020-06-25] MEDS: LISINOPRIL 10 MG TAB PEG SCH (09:36)
[2020-06-25] MEDS: OMEPRAZOLE 20MG/10ML ORAL SUSP GT SCH (10:00)
[2020-06-25] MEDS ORDERED: ENOXAPARIN SOD 30 MG/0.3 ML SYRINGE SC SCH (10:00)
[2020-06-25] MEDS ORDERED: POTASSIUM CHL 20 Meq TABLET PO ONE (10:15)
[2020-06-25 13:00] VITALS: BP 124/82
== END 2020-06-25 16:00 | disposition home health service (06) | DRG 177 ==
LOC: ER 14:57 → EDBD 14:57 → TELE 14:58 → TELE-EAST 06-23 01:05
PROVIDERS: ADMIT Internal Medicine; ATTEND Internal Medicine
DX: U07.1 COVID-19 (principal); J12.89 Other viral pneumonia; J96.00 Acute respiratory failure, unspecified whether with hypoxia or hypercapnia; J44.0 Chronic obstructive pulmonary disease with (acute) lower respiratory infection; I10 Essential (primary) hypertension; K21.9 Gastro-esophageal reflux disease without esophagitis; E78.5 Hyperlipidemia, unspecified; F32.9 Major depressive disorder, single episode, unspecified; I71.9 Aortic aneurysm of unspecified site, without rupture; K80.20 Calculus of gallbladder without cholecystitis without obstruction; Z79.899 Other long term (current) drug therapy; Z80.9 Family history of malignant neoplasm, unspecified; Z85.47 Personal history of malignant neoplasm of testis; Z86.73 Personal history of transient ischemic attack (TIA), and cerebral infarction without residual deficits; Z28.21 Immunization not carried out because of patient refusal; Z86.79 Personal history of other diseases of the circulatory system; Z87.891 Personal history of nicotine dependence; Z95.2 Presence of prosthetic heart valve; Z90.49 Acquired absence of other specified parts of digestive tract; I25.2 Old myocardial infarction
CPT/HCPCS: 36415; 36600; 71045; 71250; 80048; 80053; 82728; 82805; 83605; 83880; 84484; 85007; 85025; 85027; 85379; 86141; 87040; 87081; 87426; 93005; 94640; 99291; G0378; J1100; J2405

== ENCOUNTER 2020-10-14 13:59 | Emergency (ER) | payer OTHER ==
[~2020-10-14] VITALS: Ht 177.8 cm; Wt 78.5 kg
[~2020-10-14 13:59] MED LIST changes: -ALBU0.5N2 IN; -CHOL20007 GT; +GABA100C9 JT; -GUAI600T23 PO; -LEVO750T8 PO; +LISI-648 PEG; -METR500T PO; +MORP20SO17 JT; -POM GT; -PROP60CA34 GT; -RIZA10TA12 PO; +RIZA5TAB35 PEG
[2020-10-14] MEDS ORDERED: LACTATED RINGER'S 1,000 ML IV ONE ×2 (14:45→17:00)
[2020-10-14] MEDS ORDERED: levoFLOXacin 750MG 150 ML IV ONE (15:45)
[2020-10-14] MEDS ORDERED: metroNIDAZOLE 500MG/100ML 100 ML IV ONE (15:45)
[2020-10-14 15:48] LABS: Basophils # (auto) 0 10 ^3/uL (0-0.2); Basophils % (auto) 0.1 % (0.0-2.0); Eosinophils # (auto) 0 10 ^3/uL (0-0.8); Eosinophils % (auto) 0.1 % (0.0-7.0); Hematocrit 38.3 % (41.0-53.0); Hemoglobin 12.8 g/dL (13.5-17.5); Lymphocytes # (auto) 0.6 10 ^3/uL (0.4-5.4); Lymphocytes % (auto) 4.3 % (10.0-50.0); Mean Corpuscular Hemoglobin 30.1 pg (28.0-32.0); Mean Corpuscular Hgb Conc. 33.3 g/dL (32.0-36.0); Mean Corpuscular Volume 90.6 fL (80.0-100.0); Monocytes # (auto) 1.5 10 ^3/uL (0-1.3); Monocytes % (auto) 10.3 % (0.0-12.0); Neutrophils # (auto) 12.3 10 ^3/uL (1.6-8.6); Neutrophils % (auto) 85.2 % (37.0-80.0); Platelet Count (auto) 174 10^3/uL (140-450); Red Blood Cells 4.23 10^6/uL (4.5-5.90); Red Cell Distribution Width 14.2 % (11.8-14.3); White Blood Cell 14.4 10^3/uL (4.4-10.8)
[2020-10-14 16:09] LABS: Albumin 2.9 g/dL (3.4-5.0); Anion Gap 8 (5-15); Blood Urea Nitrogen 46 mg/dL (7-18); Calcium 8.3 mg/dL (8.5-10.1); Carbon Dioxide 20 mmol/L (21-32); Chloride 106 mmol/L (98-107); Glucose 126 mg/dL (74-106); Magnesium 2.2 mg/dL (1.6-2.6); Potassium 4.5 mmol/L (3.5-5.1); Sodium 134 mmol/L (136-145)
[2020-10-14 16:12] LABS: Lactic Acid w/Reflex 2.3 mmol/L (0.4-2.0)
[2020-10-14 16:14] LABS: Alanine Aminotransferase 30 U/L (16-61); Alkaline Phosphatase 73 U/L (45-117); Aspartate Aminotransferase 39 U/L (15-37); BUN/Creatinine Ratio 31.1; Bilirubin, Total 0.7 mg/dL (0.2-1.0); GFR African American 61 mL/min; GFR Non-African American 50 mL/min; Total Protein 6.6 g/dL (6.4-8.2)
[2020-10-14] MEDS ORDERED: SODIUM CHLORIDE 0.9% 1,000 ML IV ONE (17:15)
[2020-10-14 18:53] LABS: Urine Bacteria FEW /hpf (None Seen); Urine Blood Negative /uL (Negative); Urine Mucus FEW (None Seen); Urine Specific Gravity 1.018 (1.001-1.035); Urine WBC <1 /hpf (0 - 3)
[2020-10-14 20:00] VITALS: BP 105/62
== END 2020-10-14 21:52 | disposition home or self-care (01) ==
LOC: EDBD 13:59 → ER 13:59
DX: A41.9 Sepsis, unspecified organism (principal); J18.9 Pneumonia, unspecified organism; K21.9 Gastro-esophageal reflux disease without esophagitis; E78.5 Hyperlipidemia, unspecified; I10 Essential (primary) hypertension; I25.2 Old myocardial infarction; Z20.822 Contact with and (suspected) exposure to COVID-19
CPT/HCPCS: 36415; 36600; 71045; 80053; 81001; 82805; 83605; 83735; 84484; 85025; 87426; 93005; 96365; 96366; 96368; 99285; C9803; J1956; J3490; J7030; U0003

== ENCOUNTER 2021-05-26 14:44 | Emergency (ER) | payer OTHER ==
[~2021-05-26] VITALS: Ht 175.3 cm; Wt 71.7 kg
[~2021-05-26 14:44] MED LIST changes: +BUPR75TA10 GT; -BUPR75TA9 GT; -LISI-648 PEG; +LISI-716 PEG; +MORP1SOL9 JT; -MORP20SO17 JT
[2021-05-26 14:58] VITALS: BP 131/90
== END 2021-05-26 22:27 | disposition left against medical advice (07) ==
LOC: ER 14:44
DX: K94.23 Gastrostomy malfunction (principal); Z53.21 Procedure and treatment not carried out due to patient leaving prior to being seen by health care provider